=== PATIENT | male | born 1940 | race Caucasian/White ===

== ENCOUNTER 2016-11-29 09:56 | Emergency (ER) | payer MEDICARE ==
--- NOTE | 2016-11-29 11:18 | ED CLINICAL REPORT ---
Clinical Report - Physicians/Mid Levels [facility] [address] [place] [address] 11/29/2016 9:56 Patient: DEVEN WOLFF Time Seen: 1010; initial patient contact. Arrived- By private vehicle. Historian- patient. HISTORY OF PRESENT ILLNESS Chief Complaint: URINARY RETENTION. This started today and is still present. The problem is described as moderate. It is not gone now. It has been constant. Not gradual onset. The patient has been voiding small amounts. Similar symptoms previously: Twice. Recent medical care: Not recently seen/assessed. REVIEW OF SYSTEMS All systems otherwise negative, except as recorded above. PAST HISTORY See nurses notes. ADDITIONAL NOTES The nursing notes have been reviewed. PHYSICAL EXAM Vital Signs: 11/29/2016 10:05 BP: 168/77. HR: 84. RR: 17. O2 saturation: 99%. Temp: 97.7 F. Pain level now: 0/10. Oxygen saturation normal. Appearance: Alert. Oriented X3. No acute distress. ENT: Normal external inspection. Pharynx normal. CVS: Heart sounds normal. Respiratory: No respiratory distress. Breath sounds normal. Abdomen: Soft and nontender. Bowel sounds normal. No mass. Skin: Skin warm and dry. Normal skin color. No rash. Normal skin turgor. Extremities: Extremities exhibit normal ROM. No lower extremity edema. LABS, X-RAYS, AND EKG Laboratory Tests: UA-Culture if indicated: (THI: 11/29/2016 10:33) ( MsgRcvd 11/29/2016 10:58) Final results Test Result Flag Units (Reference) URINE COLOR YELLOW URINE APPEARANCE CLEAR URINE GLUCOSE NEGATIVE (NEGATIVE) URINE BILIRUBIN NEGATIVE (NEGATIVE) URINE KETONE NEGATIVE (NEGATIVE) URINE SPECIFIC GRAVITY <= 1.005 L (1.010-1.030) URINE PH 6.5 (5.0-8.0) URINE PROTEIN NEGATIVE (NEGATIVE) URINE UROBILINOGEN 0.2 EU/dL (0.2-1.0) URINE NITRITE NEGATIVE (NEGATIVE) URINE BLOOD 3+ (NEGATIVE) URINE LEUK ESTERASE NEGATIVE (NEGATIVE) URINE RBC 5-10 rbc/hpf (0-1) URINE WBC NONE SEEN wbc/hpf (0-1) URINE EPITHELIAL CELLS 0-1 EPI/hpf (0-5) URINE BACTERIA NONE SEEN (NONE SEEN) URINE COMMENT CULT NOT INDICATED URINE CULTURES ARE SET-UP BASED ON THE FOLLOWING CRITERIA:POSITIVE NITRITEPOSITIVE LEUKOCYTE ESTERASEGREATER THAN 10 WHITE BLOOD CELLSMODERATE (2+) OR GREATER BACTERIA . PROGRESS AND PROCEDURES Course of Care: The patient is a 76-year-old male with past medical history significant for enlarged prostate presenting for evaluation of urinary retention. Had a discussion with patient in regards to different options. Patient is agreeable to in and out catheter. Discussed return precautions with patient. Patient is agreeable to treatment plan. Urinalysis is also been ordered for urinary tract infection evaluation. Urinalysis is noted to be negative for any signs of urinary tract infection. Do not catheter was successful in relieving patient's urinary symptoms. Discussed with patient his workup here in the emergency department including diagnosis, home care, follow-up, and return precautions. All questions have been answered. The patient expressed understanding of these instructions and was agreeable to them. Disposition: Discharged. Condition: good. CLINICAL IMPRESSION 11/29/2016 10:05 BP: 168/77. HR: 84. RR: 17. O2 saturation: 99%. Temp: 97.7 F. Pain level now: 0/10. Hypertensive. Oxygen saturation normal. Essential hypertension. Urinary retention with enlarged prostate (acute). INSTRUCTIONS Warnings: GENERAL WARNINGS: Return or contact your physician immediately if your condition worsens or changes unexpectedly, if not improving as expected, or if other problems arise. Specifically return if pain, vomiting, bleeding, breathing difficulty or fever. Follow-up: Return to the emergency department as needed. Follow up with a urologist in two weeks. Reason for referral: recheck today's concerns. Summary of care provided to patient via paper. Follow up with your doctor in three days. Reason for referral: recheck today's concerns. Summary of care provided to patient via paper. Screening today revealed the patient's blood pressure to be in the hypertensive range. Blood pressure screening was not performed during this visit because the patient has an active diagnosis of hypertension. The patient should follow up with a primary care provider for blood pressure management. Understanding of the discharge instructions verbalized by patient. (Electronically signed by Mando Chapman Dr. 12/01/2016 7:25)
--- NOTE | 2016-11-29 11:18 | ED NURSING NOTES ---
Clinical Report - Nurses [facility] [place] [address] [place] [address] 11/29/2016 9:56 Patient: DEVEN WOLFF TRIAGE Triage time 10:Nov 29 2016. Chief Complaint: URINARY RETENTION and (pt reports hx of enlarged prostate with hx of having to have ramires placed due to difficutly in urinating. pt during triage attempted to void in urinal, able to void minimal amount-). Alert. No acute distress. SEPSIS SCREEN: Sepsis Screen. Negative (no infection suspected/documented). --10:09 Karli Frazier R.N. 10:05 11/29/16. BP: 168/77. HR: 84. RR: 17. O2 saturation: 99%. Temp: 97.7 F. Pain level now: 0/10. --10:09 Karli Frazier R.N. Weight: 81.6 kg stated. Height/Length: 67 inches Per Patient. BMI: 28.2. --10:07 Karli Frazier R.N. Medications Aspirin EC Oral 81 mg, daily. Tamsulosin HCl Oral (Capsule 0.4 mg) 0.4 mg, daily. Vit d 2000 units. --10:07 Karli Frazier R.N. Medication/allergy information source: the patient. --10:09 Karli Frazier R.N. Allergies NKDA. None. --10:07 Karli Frazier R.N. History Arrived by private vehicle. Historian: patient. This started last night. Treatment TRIMMER PRESS CLIPPINGS: None. PAST MEDICAL HX: Benign prostatic hypertrophy. Immunizations: status is unknown. SOCIAL HX: Former smoker, end date 1979. No alcohol use or drug use. No infectious disease exposure. ABUSE ASSESSMENT: No report of abuse. SELF HARM ASSESSMENT: A self harm assessment was performed. The patient answered "no" to the question "Do you have thoughts of harming or killing yourself?". --10:09 Karli Frazier R.N. PROBLEMS: Hematuria. Hypertension. Benign Prostatic Hypertrophy. Ramires Catheter. Urinary Retention. Immunizations. --10:07 Karli Frazier R.N. ADDITIONAL SURGERIES: Steel plates in head as child. --10:07 Karli Frazier R.N. Interventions ID band on patient. To treatment room. --10:09 Karli Frazier R.N. PHYSICAL ASSESSMENT Ambulatory to room. Patient gowned. GENERAL / NEURO / PSYCH: Alert. Oriented X 4. Appears in no acute distress. HEENT: Mucous membranes are pink. RESPIRATORY: Respirations not labored. CVS: Capillary refill less than 2 seconds. GI / : Abdomen soft and nontender. Bowel sounds within normal limits. SKIN: Skin is warm and dry. --10:09 Karli Frazier R.N. NURSING PROGRESS NOTES Patient identifiers checked. Call light placed in reach. Side rails up. Bed placed in lowest position. Brakes of bed on. Patient ready for evaluation- chart flagged. Patient waiting for evaluation. --10:10 Karli Frazier R.N. ( Bladder scan performed, shows 873ml in bladder.). --10:17 Vaughn Groves, ER Tech1 14 fr in/out catheterization placed. Reason for indwelling catheter: retention. During procedure hand hygiene observed and sterile equipment and aseptic technique used. Return of 850 mL yellow-colored clear urine. He tolerated procedure well (in/out removed intact). Patient identifiers checked. Call light placed in reach. Side rails up. Bed placed in lowest position. Brakes of bed on. --10:36 Karli Frazier R.N. DISPOSITION / DISCHARGE Condition at departure: improved. No learning barriers present. Discharge instructions provided and reviewed with the patient. Patient verbalized understanding. Written instructions provided in [place]. The patient was discharged by the physician. He was discharged home. He left the Emergency Department ambulatory and via private vehicle. Patient driving. --11:30 Karli Frazier R.N. 11:29 11/29/16. BP: 142/70. HR: 72. RR: 17. O2 saturation: 99%. Temp: deferred. Pain level now: 0/10. --11:30 Karli Frazier R.N. Locked/Released at 11/29/2016 11:48 by Karli Frazier R.N.
--- NOTE | 2016-11-29 11:18 | ED ORDER SUMMARY ---
..... Patient: DEVEN WOLFF OrderSheet [facility] VisitID: [id number] [address] [place] [address] 76y, M Registration Date/Time: 11/29/2016 ORDER SHEET Weight: 81.6 kg (stated) Allergies: NKDA, None GENERAL ORDERS: UA-Culture if indicated Urgent (10:08 11/29/2016 Annetta Hernandez) (Ack 10:10 Beverley) (10:36 Alondra R.N.) Bladder Scan (10:11/29/2016 Annetta Hernandez) (10:15 Julien TAVERAS Tech1) - (straight cath) (10:17 11/29/2016 Annetta Hernandez) (10:36 Alondra Vargas.N.) MEDICATION ORDERS: IV FLUIDS: ORDER SHEET NOTES: [Electronically signed by Karli Frazier R.N. (11:48 11/29/2016)] [Electronically signed by Mando Chapman Dr. (07:25 12/01/2016)] [Electronically locked/signed by Karli Frazier R.N. (11:48 11/29/2016)]
--- NOTE | 2016-11-29 11:18 | ED NURSING NOTES ---
Clinical Report - Nurses [facility] [place] [address] [address] 11/29/2016 9:56 Patient: DEVEN WOLFF TRIAGE Triage time 10:Nov 29 2016. Chief Complaint: URINARY RETENTION and (pt reports hx of enlarged prostate with hx of having to have ramires placed due to difficutly in urinating. pt during triage attempted to void in urinal, able to void minimal amount-). Alert. No acute distress. SEPSIS SCREEN: Sepsis Screen. Negative (no infection suspected/documented). --10:09 Karli Frazier R.N. 10:05 11/29/16. BP: 168/77. HR: 84. RR: 17. O2 saturation: 99%. Temp: 97.7 F. Pain level now: 0/10. --10:09 Karli Frazier R.N. Weight: 81.6 kg stated. Height/Length: 67 inches Per Patient. BMI: 28.2. --10:07 Karli Frazier R.N. Medications Aspirin EC Oral 81 mg, daily. Tamsulosin HCl Oral (Capsule 0.4 mg) 0.4 mg, daily. Vit d 2000 units. --10:07 Karli Frazier R.N. Medication/allergy information source: the patient. --10:09 Karli Frazier R.N. Allergies NKDA. None. --10:07 Karli Frazier R.N. History Arrived by private vehicle. Historian: patient. This started last night. Treatment APPLICATIONS ANALYST: None. PAST MEDICAL HX: Benign prostatic hypertrophy. Immunizations: status is unknown. SOCIAL HX: Former smoker, end date 1979. No alcohol use or drug use. No infectious disease exposure. ABUSE ASSESSMENT: No report of abuse. SELF HARM ASSESSMENT: A self harm assessment was performed. The patient answered "no" to the question "Do you have thoughts of harming or killing yourself?". --10:09 Karli Frazier R.N. PROBLEMS: Hematuria. Hypertension. Benign Prostatic Hypertrophy. Ramires Catheter. Urinary Retention. Immunizations. --10:07 Karli Frazier R.N. ADDITIONAL SURGERIES: Steel plates in head as child. --10:07 Karli Frazier R.N. Interventions ID band on patient. To treatment room. --10:09 Karli Frazier R.N. PHYSICAL ASSESSMENT Ambulatory to room. Patient gowned. GENERAL / NEURO / PSYCH: Alert. Oriented X 4. Appears in no acute distress. HEENT: Mucous membranes are pink. RESPIRATORY: Respirations not labored. CVS: Capillary refill less than 2 seconds. GI / : Abdomen soft and nontender. Bowel sounds within normal limits. SKIN: Skin is warm and dry. --10:09 Karli Frazier R.N. NURSING PROGRESS NOTES Patient identifiers checked. Call light placed in reach. Side rails up. Bed placed in lowest position. Brakes of bed on. Patient ready for evaluation- chart flagged. Patient waiting for evaluation. --10:10 Karli Frazier R.N. ( Bladder scan performed, shows 873ml in bladder.). --10:17 Vaughn Groves, ER Tech1 14 fr in/out catheterization placed. Reason for indwelling catheter: retention. During procedure hand hygiene observed and sterile equipment and aseptic technique used. Return of 850 mL yellow-colored clear urine. He tolerated procedure well (in/out removed intact). Patient identifiers checked. Call light placed in reach. Side rails up. Bed placed in lowest position. Brakes of bed on. --10:36 Karli Frazier R.N. DISPOSITION / DISCHARGE Condition at departure: improved. No learning barriers present. Discharge instructions provided and reviewed with the patient. Patient verbalized understanding. Written instructions provided in [place]. The patient was discharged by the physician. He was discharged home. He left the Emergency Department ambulatory and via private vehicle. Patient driving. --11:30 Karli Frazier R.N. 11:29 11/29/16. BP: 142/70. HR: 72. RR: 17. O2 saturation: 99%. Temp: deferred. Pain level now: 0/10. --11:30 Karli Frazier R.N. Locked/Released at 11/29/2016 11:48 by Karli Frazier R.N.
--- NOTE | 2016-11-29 11:18 | ED ORDER SUMMARY ---
..... Patient: DEVEN WOLFF OrderSheet [facility] VisitID: [id number] [address] [place] [address] 76y, M Registration Date/Time: 11/29/2016 ORDER SHEET Weight: 81.6 kg (stated) Allergies: NKDA, None GENERAL ORDERS: UA-Culture if indicated Urgent (10:08 11/29/2016 Annetta Hernandez) (Ack 10:10 Beverley) (10:36 Alondra R.N.) Bladder Scan (10:11/29/2016 Annetta Hernandez) (10:15 Julien TAVERAS Tech1) - (straight cath) (10:17 11/29/2016 Annetta Hernandez) (10:36 Alondra Vargas.N.) MEDICATION ORDERS: IV FLUIDS: ORDER SHEET NOTES: [Electronically signed by Karli Frazier R.N. (11:48 11/29/2016)] [Electronically signed by Mando Chapman Dr. (07:25 12/01/2016)] [Electronically locked/signed by Karli Frazier R.N. (11:48 11/29/2016)]
--- NOTE | 2016-12-01 07:25 | ED MED RECONCILIATION SUMMARY ---
Patient: DEVEN WOLFF Medication Reconciliation Report [facility] VisitID: [id number] [address] [place] [address] 76y, M Registration Date/Time: 11/29/2016 Weight: 81.6 kg Height/Length: 67 in. BMI: 28.2 ALLERGIES: NKDA, None The patient's Home Medications are listed below: THE FOLLOWING MEDICATIONS NEED TO BE RECONCILED: Aspirin EC Oral 81 mg, daily Tamsulosin HCl Oral (0.4 mg) 0.4 mg, daily Vit d 2000 units The source(s) of the original Home Medication information: patient The following Medications were given to the patient in the Emergency Department: None. The following Medications were prescribed to the patient: None.
--- NOTE | 2016-12-01 07:25 | ED MAR SUMMARY ---
..... Medication Administration Record [facility] [address] [place], [place] [id number] Patient: DEVEN WOLFF Visit ID: [id number] 76y, M Weight: 81.6 kg Height/Length: 67 in BMI: 28.2 ALLERGIES: NKDA, None
--- NOTE | 2016-12-01 07:25 | ED MED RECONCILIATION SUMMARY ---
Patient: DEVEN WOLFF Medication Reconciliation Report [facility] VisitID: [id number] [address] [place] [address] 76y, M Registration Date/Time: 11/29/2016 Weight: 81.6 kg Height/Length: 67 in. BMI: 28.2 ALLERGIES: NKDA, None The patient's Home Medications are listed below: THE FOLLOWING MEDICATIONS NEED TO BE RECONCILED: Aspirin EC Oral 81 mg, daily Tamsulosin HCl Oral (0.4 mg) 0.4 mg, daily Vit d 2000 units The source(s) of the original Home Medication information: patient The following Medications were given to the patient in the Emergency Department: None. The following Medications were prescribed to the patient: None.
--- NOTE | 2016-12-01 07:25 | ED DISCHARGE INSTRUCTIONS ---
Patient: DEVEN WOLFF General Instructions [facility] VisitID: [id number] [place] [address] 76y, M Registration Date/Time: 11/29/2016 11/29/2016 10:05 BP: 168/77. HR: 84. RR: 17. O2 saturation: 99%. Temp: 97.7 F. Pain level now: 0/10. Hypertensive. Oxygen saturation normal. Essential hypertension. Urinary retention with enlarged prostate (acute). INSTRUCTIONS Warnings: GENERAL WARNINGS: Return or contact your physician immediately if your condition worsens or changes unexpectedly, if not improving as expected, or if other problems arise. Specifically return if pain, vomiting, bleeding, breathing difficulty or fever. Follow-up: Return to the emergency department as needed. Follow up with a urologist in two weeks. Reason for referral: recheck today's concerns. Summary of care provided to patient via paper. Follow up with your doctor in three days. Reason for referral: recheck today's concerns. Summary of care provided to patient via paper. Screening today revealed the patient's blood pressure to be in the hypertensive range. Blood pressure screening was not performed during this visit because the patient has an active diagnosis of hypertension. The patient should follow up with a primary care provider for blood pressure management. Understanding of the discharge instructions verbalized by patient. ADDITIONAL INFORMATION High Blood Pressure --Established High Blood Pressure (Hypertension) is a chronic disease. The cause is unknown in most cases. It can usually be controlled with lifestyle changes and/or medicines. Symptoms of high blood pressure may include headache, dizziness, visual changes, chest pain and shortness of breath. Sometimes it causes no symptoms at all. However, even if there are no symptoms, untreated high blood pressure increases the risk of heart attack, also known as acute myocardial infarction, or AMI, and stroke. It is a serious health risk and should not be ignored. A normal blood pressure is 120/80 or less. The first (top) number is the "systolic" pressure. The second (bottom) number is the "diastolic" pressure. Hypertension exists when either the top number is 140 or higher, OR the bottom number is 90 or higher on repeated measurements. Home Care: All patients with high blood pressure should do the following to lower their pressure. If you are on medicines, then these methods may reduce or eliminate your need for medicines in the future. Begin a weight loss program if you are overweight. Reduce your salt intake. Avoid high salt foods (olives, pickles, smoked meats, salted potato chips, etc.). Do not add salt to your food at the table. Use only small amounts of salt when cooking. Begin an exercise program. Discuss with your doctor what type of exercise program would be best for you. It doesn't have to be difficult. Even brisk walking for 20 minutes three times a week is a good form of exercise. Avoid medicines which contain heart stimulants. This includes many cold and sinus decongestant pills and sprays as well as diet pills. Check the warnings about hypertension on the label. Stimulants such as amphetamine or cocaine could be lethal for someone with hypertension. Never take these. Limit your caffeine intake or switch to caffeine-free products. Stop smoking. If you are a long-time smoker, this can be hard. Enroll in a stop-smoking program to improve your chance of success. Learning how to handle stress better is an important part of any program to lower blood pressure. Learn about relaxation methods such as meditation, yoga or biofeedback. If medicines were prescribed, take them exactly as directed. Missing doses may cause your blood pressure get out of control. Consider buying an automatic blood pressure machine (available at most pharmacies). Use this to monitor your blood pressure at home and report the results to your doctor. Follow Up: Regular visits to your own physician for blood pressure checks and medicine adjustment is an important part of your care. Make a follow-up appointment as directed by our staff. Get Prompt Medical Attention if any of the following occur: Chest pain or shortness of breath Severe headache Throbbing or rushing sound in the ears Nosebleed Sudden severe abdominal pain Extreme drowsiness, confusion or fainting Dizziness or vertigo (dizziness with spinning sensation) Weakness of an arm or leg or one side of the face Difficulty with speech or vision Urinary Retention (Male) Urinary retention means that you are unable to pass urine, even though your bladder is full. The most common cause for this in males is a blockage of the bladder outlet by an enlarged prostate gland or a bladder infection. Certain medicines can also cause this problem. This condition is treated by insertion of a catheter into the bladder to drain the urine. This provides immediate relief. The catheter may need to remain in place for a few days to prevent a recurrence. The catheter has a balloon on the tip which was inflated after insertion. This prevents the catheter from falling out. Home Care: If an antibiotic was prescribed to treat a bladder infection, be sure to take it until finished, even if you are feeling better before it is all gone. If a catheter was left in place, it is important to keep bacteria from getting into the collection bag. Do not disconnect the catheter from the collection bag. Use a leg band to secure the drainage tube, so it does not pull on the catheter. Drain the collection bag when it becomes full using the drain spout at the bottom of the bag. Do not try to pull or remove your catheter. This will injure your urethra. It must be removed by a doctor or nurse. Follow Up with your doctor as advised. If a catheter was left in place, it can usually be removed within 3-7 days. Some conditions require that the catheter remains in longer. Follow up with your doctor to determine the right time for you. Get Prompt Medical Attention if any of the following occur: Fever of 100.4F (38C) or higher, or as directed by your healthcare provider Bladder or lower abdominal pain or fullness Abdominal swelling, nausea, vomiting or back pain Blood or urine leakage around the catheter Bloody urine coming from the catheter (if a new symptom) Weakness, dizziness or fainting Confusion or change in usual level of alertness If a catheter was left in place, return if: Catheter falls out Catheter stops draining for 6 hours You have been given the following additional information: Hypertension, Established Urinary Retention, Male (Electronically signed by Mando Chapman Dr. 12/01/2016 7:25)
--- NOTE | 2016-12-01 07:25 | ED MAR SUMMARY ---
..... Medication Administration Record [facility] [address] [place], [place] [id number] Patient: DEVEN WOLFF Visit ID: [id number] 76y, M Weight: 81.6 kg Height/Length: 67 in BMI: 28.2 ALLERGIES: NKDA, None
== END 2016-11-29 11:27 | disposition home or self-care (01) ==
LOC: ED SRH 09:56
DX: N40.1 Benign prostatic hyperplasia with lower urinary tract symptoms (principal); R33.8 Other retention of urine; I10 Essential (primary) hypertension; Z79.82 Long term (current) use of aspirin; Z79.899 Other long term (current) drug therapy; Z87.891 Personal history of nicotine dependence
CPT/HCPCS: 90004